=== PATIENT | female | born 1965 | race Caucasian/White ===

== ENCOUNTER 2025-01-11 19:00 | Emergency (ER) | payer OTHER, SELFPAY ==
[2025-01-11 19:03] VITALS: BP 152/67
[2025-01-11 19:24] LABS: Hematocrit 36.2 % (37.0-47.0); Hemoglobin 12.1 g/dL (12.0-16.0); Mean Corp Hgb Conc. 33.4 g/dL (33.0-37.0); Mean Corpuscular Volume 83.4 fL (81.0-99.0); Nucleated Red Blood Cells % 0 %; Platelet Count 225 10^3/uL (130-400); Red Cell Dist. Width 13.5 % (11.5-14.5)
[2025-01-11 19:42] LABS: ALT (SGPT) 24 U/L (0-35); AST (SGOT) 21 U/L (14-36); Albumin 4.2 g/dl (3.5-5.0); Alkaline Phosphatase 96 U/L (38-126); Blood Urea Nitrogen 17 mg/dl (7-17); Calcium 9.1 mg/dl (8.4-10.2); Carbon Dioxide 26 mmol/L (22-30); Chloride 107 mmol/L (98-107); Glucose 159 mg/dl (70-99); Potassium 4.2 mmol/L (3.5-5.1); Sodium 141 mmol/L (135-145); Total Protein 7.2 g/dl (6.3-8.2); eGFR > 60.00
[2025-01-11 20:00] LABS: Troponin I < 0.012 ng/ml
--- NOTE | 2025-01-11 22:13 | ED.GENMED ---
History of Present Illness
General
Chief Complaint: Cough
Source: patient
Exam Limitations: none
Time Seen by Provider: 01/11/25 22:10
History of Present Illness
History of Present Illness:
59yoF with a history of hyperlipidemia and type 2 diabetes presenting with her son for evaluation of upper back pain. She reports pain in her upper back for the past 4 days. She denies any injuries. She has been sick with a cough for the past 10
days which is gradually improving. Her back pain is worse with movement, coughing, position changes, and deep breathing. She tried Tylenol at home without much relief. She has some very minor pain in her anterior chest as well.
Past History
Past History
ED Past Medical History: HTN and Hypercholesterolemia
ED Past Surgical History: None
Social History
Tobacco: Non-smoker
Alcohol: None
Drug: None
Personal:
Living: with family
Employment: Employed
Family History
Family History: Other (Noncontributory)
Phy Exam
General Physical Exam
General Presentation: well appearing and no apparent distress
General Skin: warm and dry
General Habitus: normal
General Mental: alert
ENT Exam
ENT Exam: normocephalic
Cardiovascular Exam
Cardiovascular Exam: regular rate/rhythm and no murmur
Pulmonary Exam
Pulmonary Exam: lungs clear, no respiratory distress, no rales, no crackles, no rhonchi and no wheezing
Neurological Exam
Neurological Exam: alert
Mariano Coma Scale
Eye Opening: Spontaneous
Verbal Response: Oriented
Motor Response: Obeys Commands
GCS Total Score: 15
Musculoskeletal Exam
Musculoskeletal Exam: other (+Tenderness to the thoracic region bilaterally. No skin changes.)
Skin Exam
Skin Exam: normal color and warm/dry
Psychiatric Exam
Psychiatric Exam: normal mood/affect
Course
Orders/Labs/Results
Orders:
Orders
01/11/25 19:06
Electrocardiogram (*1) Urgent
Reason for Study: Other
Other Reason for Exam: Respiratory Distress
Cardiac Monitoring- Treatment ONCE
EKG- Treatment ONCE
IV Insert/Care/Rem.- Treatment PRN
CR Chest - 2 Views Urgent
Comment:
Reason For Exam: respiratory distress
O2 Therapy [RESP] Urgent
Titrate/Wean O2 to maintain O2 sat greater than (%): 93
Special Instructions: TO MAINTAIN CONTINUOUS O2 SATS >/= 93%
Pulse Ox/cont/shift [RESP] Urgent
Quantity: 1
Special Instructions: continuous pulse ox
01/11/25 19:15
Complete Blood Count/With Diff Urgent
Comprehensive Metabolic Panel Urgent
Troponin I Urgent
01/11/25 22:23
Cardiac Monitoring- Treatment ONCE
Ketorolac [Toradol] 15 mg IV NOW STA
01/11/25 22:48
D-Dimer Urgent
Abnormal Lab Results
01/11/25
19:15
Hct 36.2 L %
(37.0-47.0)
MPV 11.1 H fL
(7.4-10.4)
Glucose 159 H mg/dl
(70-99)
01/11/25 19:15
01/11/25 19:15
Vital Signs
Initial and Last Documented VS:
Initial Vital Signs
Temp Pulse Resp BP Pulse Ox
98.9 F 94 18 152/67 99
01/11/25 19:03 01/11/25 19:03 01/11/25 19:03 01/11/25 19:03 01/11/25 19:03
Last Documented Vital Signs
Temp Pulse Resp BP Pulse Ox
98.9 F 74 16 112/76 99
01/11/25 19:03 01/11/25 23:45 01/11/25 23:45 01/11/25 22:58 01/11/25 23:45
MDM/Problems Addressed
Differential Diagnosis Includes:
59yoF here with mid back pain x 4 days. Also having a cough x 10 days. Back pain worse with coughing, moving, breathing. VSS. Oxygen saturation 99% on room air. She is well-appearing no acute distress. There is reproducible thoracic tenderness on
exam. Lungs clear to auscultation. Differential diagnosis includes but is not limited to: Musculoskeletal, pleurisy, pneumonia, pneumothorax, PE
Initial ED plan: Workup initiated in triage. EKG shows normal sinus rhythm without ischemic changes and troponin normal. Chest x-ray is clear without infiltrates or pleural effusion. Will check D-dimer. IV Toradol for pain.
*Pulse Oximetry
SaO2: 99
Oxygen Mode of Delivery: Room air
Patient hypoxic: no (99%)
*EKG
Interpreted by ED Provider?: Yes
EKG Intrepretation Date: 01/11/25
Heart Rate: 88
Rate: normal
Rhythm: sinus
[place]: normal axis
Interval: normal interval
QRS Pattern: normal QRS
Ischemia: no ischemia
*Critical Care Note
Total Time (30-74mins, 75-104mins- exclusive of procedures): Not Applicable
Update Note
Update Note:
D-dimer normal making PE very unlikely. On reassessment, patient reports improvement in pain after Toradol. Suspect musculoskeletal pain secondary to coughing. No indication for hospitalization. Supportive care reviewed. Advised follow-up with
PCP. Patient discharged in stable condition.
ED Attending Note
-
Portions of this chart may have been created with voice recognition software.� Occasional wrong word or��sound alike� substitutions may have occurred due to the inherent limitations of voice recognition software.
Discharge Plan
Departure
Patient Disposition: Home (Routine Discharge)
Date of Disposition: 01/11/25
Time of Disposition: 23:52
Patient with high blood pressure during this ER visit?: No
Discharge Problem:
Acute thoracic back pain
Instructions: Upper Back Pain ED
Prescriptions:
No Action
loratadine 10 MG tablet
10 mg PO DAILY
Referrals:
UNKNOWN - PT DOES,NOT KNOW [Family Provider]
Activity Restrictions/Additional Instructions:
Apply heat to affected area. Continue taking Tylenol as needed. You may also use Voltaren gel.
Please follow-up with your family doctor next week. Return to the ER with any new or worsening symptoms.
Interventions
Interventions:
*Risk Screen - Suicide Last Done: 01/11/25 19:03
*General Assessment Last Done: 01/11/25 22:58
*Neglect/Abuse Screening Last Done: 01/11/25 19:03
*ED- Fall Risk Assessment Last Done: 01/11/25 22:58
*ED COVID-19 Vaccine History Last Done: 01/11/25 22:58
*Nursing Disposition Last Done: 01/12/25 00:04
ED- Pulmonary Assessment Last Done: 01/11/25 22:58
Discharge Date and Time
Discharge Date/Time: 01/12/25 00:06
Print Language: GREENLANDIC
[2025-01-11] MEDS: TORADOL 15 MG IV (22:50)
[2025-01-11 22:54] VITALS: BMI 42.1
[2025-01-11 22:58] VITALS: BP 112/76
[2025-01-11 23:24] LABS: D-Dimer 0.30 ug/mlFEU (0.00-0.50)
== END 2025-01-12 00:06 | disposition home or self-care (01) ==
LOC: EMR 19:00
PROVIDERS: Physician Assistant; Student in an Organized Health Care Education/Training Program; EMERGENCY PHYSICIAN Emergency Medicine
DX: M54.6 Pain in thoracic spine (principal); E78.00 Pure hypercholesterolemia, unspecified; E11.9 Type 2 diabetes mellitus without complications
CPT/HCPCS: 99285; 96374; 71046; 80053; 84484; 85025; 85379; 93005